=== PATIENT | male | born 1985 | race Caucasian/White ===

== ENCOUNTER → 2016-07-12 | Outpatient (CLI) | payer OTHER ==
[2016-07-12 10:10] LABS: Basophils % (A) 1 %; CH 26.5; CHCM 32.1; Eosinophils % (A) 1 %; HCT 46.6 % (39.0-53.0); HDW 2.62; HGB 14.9 gm/dL (13.0-17.5); Luc % (Auto) 3; Lymphocytes % (A) 32 %; MCH 26.6 pg (25.0-35.0); Monocytes # (A) 0.5 k/uL (0-1.0); Monocytes % (A) 8 %; Neutrophils # (A) 3.6 k/uL (1.3-7.7); Neutrophils % (A) 56 %; RBC 5.61 m/uL (4.30-5.90); WBC 6.4 k/uL (3.8-10.6); WBC (Perox) 6.48
[2016-07-12 10:26] LABS: Appearance,Urine Clear (Clear); Bilirubin,Urine Negative (Negative); Glucose,Urine (UA) Negative (Negative); Ketones,Urine Negative (Negative); Leukocyte Esterase,Urine Negative (Negative); Nitrite,Urine Negative (Negative); PH, Urine 5.5 (5.0-8.0); Protein,Urine Negative (Negative); Specific Gravity,Urine 1.004 (1.001-1.035); UA Billing (MACRO vs. MICRO) CHEM; Urobilinogen,Urine <2.0 mg/dL (<2.0)
[2016-07-12 10:54] LABS: ALT 63 U/L (21-72); AST 37 U/L (17-59); Alkaline Phosphatase 89 U/L (38-126); Anion Gap 13 mmol/L; Blood Urea Nitrogen 23 mg/dL (9-20); Calcium 9.8 mg/dL (8.4-10.2); Carbon Dioxide 26 mmol/L (22-30); Chloride 103 mmol/L (98-107); Cholesterol 152 mg/dL (<200); Glucose 95 mg/dL (74-99); HDL Cholesterol 54 mg/dL (40-60); Non-African American GFR(MDRD) >60 (>60 ml/min/1.73 sqM); Potassium 4.5 mmol/L (3.5-5.1); Sodium 142 mmol/L (137-145); Total Bilirubin 0.4 mg/dL (0.2-1.3); Total Protein 8.2 g/dL (6.3-8.2); Triglycerides 68 mg/dL (<150)
== END | disposition home or self-care (01) ==
LOC: LABWHC1 09:26
PROVIDERS: ATTEND Family Medicine
DX: Z00.00 Encounter for general adult medical examination without abnormal findings (principal); E04.1 Nontoxic single thyroid nodule
CPT/HCPCS: 36415; 80053; 80061; 81003; 84436; 84439; 84443; 85025

== ENCOUNTER 2024-02-28 13:11 | Observation (INO) | payer OTHER ==
--- NOTE | 2024-02-28 13:41 | ED ---
Back Pain HPI - General Source: patient, RN notes reviewed Limitations: no limitations <Katya Cruz - Last Filed: 02/28/24 15:45> <Ramsey Pino - Last Filed: 03/04/24 04:25> - General Chief Complaint: Back Pain/Injury Stated Complaint: lower back pain Time Seen by Provider: 02/28/24 13:30 - History of Present Illness Initial Comments: This is a 38-year-old male presenting to the emergency department chief complaint of worsening lumbar spine over the past 2 days. was advised by search specialist to report to the ER for further evaluation. describes the pain as a stabbing sensation to his lumbar spine. He denies loss of bladder bowel continence or saddle anesthesias or history of new injuries to his back. Denies history of IV drug use. He denies fevers, chills, nausea, vomiting, abdominal pain. Patient states that in [place] was [place] and suffered a work-related injury as a 'tear of the lumbar spine' determined on MRI in November. Patient has been enrolled in physical therapy since November and has received an epidural inje ction with Dr. Vann in January, however symptoms have not improved. Patient had appointment with excel specialist on 02/16 where he is being referred to anesthesiologist with possible nerve block. (Katya Cruz) - Related Data Previous Rx's Medication Instructions Recorded HYDROcodone/APAP 7.5-325MG [[place] 1 tab PO Q6HR PRN #28 tab 03/02/24 7.5-325] Hydrocodone/Acetaminophen 1 tab PO Q6H PRN #28 tab 03/03/24 [Hydrocodone/Acetaminophen 7.5-325] Allergies Allergy/AdvReac Type Severity Reaction Status Date / Time cefprozil [From Cefzil] Allergy Rash/Hives Verified 02/28/24 15:56 Review of Systems ROS Other: All systems not noted in ROS Statement are negative. <Katya Cruz - Last Filed: 02/28/24 15:45> ROS Other: All systems not noted in ROS Statement are negative. <Ramsey Pino - Last Filed: 03/04/24 04:25> ROS Statement: Those systems with pertinent positive or pertinent negative responses have been documented in the HPI. Past Medical History Additional Past Medical History / Comment(s): Back injury History of Any Multi-Drug Resistant Organisms: None Reported Past Surgical History: No Surgical Hx Reported Past Psychological History: No Psychological Hx Reported Smoking Status: Never smoker Past Alcohol Use History: None Reported Past Drug Use History: None Reported <Katya Cruz - Last Filed: 02/28/24 15:45> General Exam Limitations: no limitations General appearance: alert, in distress (from pain) Eye exam: Present: normal appearance, PERRL, EOMI. Absent: scleral icterus, conjunctival injection, periorbital swelling Neck exam: Present: normal inspection. Absent: tenderness, meningismus, lym phadenopathy Respiratory exam: Present: normal lung sounds bilaterally. Absent: respiratory distress, wheezes, rales, rhonchi, stridor Cardiovascular Exam: Present: regular rate, normal rhythm, normal heart sounds. Absent: systolic murmur, diastolic murmur, rubs, gallop, clicks GI/Abdominal exam: Present: soft, normal bowel sounds. Absent: distended, tenderness, guarding, rebound, rigid Rectal exam: Present: normal inspection, normal rectal tone Extremities exam: Present: normal inspection, full ROM, normal capillary refill. Absent: tenderness, pedal edema, joint swelling, calf tenderness Back exam: Present: normal inspection, tenderness (lumbar spine), muscle spasm. Absent: full ROM Neurological exam: Present: alert, oriented X3, CN II-XII intact Skin exam: Present: warm, dry, intact, normal color. Absent: rash <Katya Cruz - Last Filed: 02/28/24 15:45> Course Vital Signs 02/28/24 02/28/24 02/28/24 13:14 15:02 18:31 Temperature 97.9 F 98.0 F Pulse Rate 96 88 Respiratory 18 17 Rate Blood Pressure 144/93 160/89 146/88 O2 Sat by Pulse 98 98 Oximetry Medical Decision Making <Katya Cruz - Last Filed: 02/28/24 15:45> - Lab Data Result diagrams: 02/28/24 16:14 02/28/24 16:14 <Ramsey Pino - Last Filed: 03/04/24 04:25> - Medical Decision Making Was pt. sent in by a medical professional or institution (, PA, CRYPTOLOGIST, urgent care, hospital, or fci...) When possible be specific @ -Patient was advised by excel specialist, Dr. Vann, to present to the emergency department for further evaluation of lumbar back pain. Did you speak to anyone other than the patient for history (EMS, parent, family, police, friend...)? What history was obtained from this source @ -No Did you review nursing and triage notes (agree or disagree)? Why? @ -I reviewed and agree with nursing and triage notes Were old charts reviewed (outside hosp., previous admission, EMS record, old EKG, old radiological studies, urgent care reports/EKG's, fci records)? Report findings @ -No old charts were reviewed Differential Diagnosis (chest pain, altered mental status, abdominal pain women, abdominal pain men, vaginal bleeding, weakness, fever, dyspnea, syncope, headache, dizziness, GI bleed, back pain, seizure, CVA, palpatations, mental health, musculoskeletal)? @ -Differential Back Pain: Strain, zoster, cauda equina syndrome, epidural abscess, vertebral osteomyelitis, discitis, fracture, subluxation, disc herniation, DJD, spinal stenosis, dissection, AAA, pancreatitis, peptic ulcer disease, pyelonephritis, kidney stone, this is not meant to be an all-inclusive list. EKG interpreted by me (3pts min.). @ -none X-rays interpreted by me (1pt min.). @ -None done CT interpreted by me (1pt min.). @ -CT the lumbar spine without contrast remarkable for a L4-L5 central disc protrusion. U/S interpreted by me (1pt. min.). @ -None done What testing was considered but not performed or refused? (CT, X-rays, U/S, labs)? Why? @ -None What meds were considered but not given or refused? Why? @ -None Did you discuss the management of the patient with other professionals (professionals i.e. , PA, CRYPTOLOGIST, lab, RT, psych nurse, psychiatric social worker supervisor, fence erector, teacher, fire management officer, shoe caser)? Give summary @ -No Was smoking cessation discussed for >3mins.? @ -No Was critical care preformed (if so, how long)? @ -No Were there social determinants of health that impacted care today? How? (Homelessness, low income, unemployed, alcoholism, drug addiction, transportation, low edu. Level, literacy, decrease access to med. care, prison, rehab)? @ -No Was there de-escalation of care discussed even if they declined (Discuss DNR or withdrawal of care, Hospice)? DNR status @ -No What co-morbidities impacted this encounter? (DM, HTN, Smoking, COPD, CAD, Cancer, CVA, ARF, Chemo, Hep., AIDS, mental health diagnosis, sleep apnea, morbid obesity)? @ -None Was patient admitted / discharged? Hospital course, mention meds given and route, prescriptions, significant lab abnormalities, going to OR and other pertinent info. @ -admitted. 38-year-old male with lumbar back pain. On evaluation patient noted to be in mild acute distress due to pain. States that he is unable to get in a comfortable position on the examination bed. He is noted to have tenderness palpation of the lumbar spine exacerbated with range of motion. He is noted to have a mild muscle spasm of the lumbar spine as well. Patient's rectal tone is intact. There are no red flag findings concerning for cauda equina syndrome. Patient provided with pain medication. CT remarkable for a central disc protrusion of the L4-L5 lumbar spine. On reevaluation and states that pain has hardly improved after pain medication. Patient is again considerably uncomfortable. At this time patient will be admitted to internal medicine with orthopedics on consult for further evaluation of intractable back pain. Discussed with Dr. Pino Undiagnosed new problem with uncertain prognosis? @ -No Drug Therapy requiring intensive monitoring for toxicity (Heparin, Nitro, Insulin, Cardizem)? @ -No Were any procedures done? @ -No Diagnosis/symptom? @ -lumbar back pain, lumbar disc protrusion Acute, or Chronic, or Acute on Chronic? @ -acute Uncomplicated (without systemic symptoms) or Complicated (systemic symptoms)? @ -uncomplicated Side effects of treatment? @ -No Exacerbation, Progression, or Severe Exacerbation? @ -No Poses a threat to life or bodily function? How? (Chest pain, [place], [place], pneumonia, PE, COPD, DKA, ARF, appy, cholecystitis, CVA, Diverticulitis, Homicidal, Suicidal, threat to staff... and all critical care pts) @ -No (Katya Cruz) Disposition Decision to Admit Reason: Admit from EC Decision Date: 02/28/24 Decision Time: 15:28 <Katya Cruz - Last Filed: 02/28/24 15:45> <Ramsey Pino - Last Filed: 03/04/24 04:25> Clinical Impression: Lumbar back pain Disposition: ADMITTED IP TO THIS HOSP Condition: Good
[2024-02-28] MEDS: HYDROmorphone 0.5 MG/0.5 ML SYRINGE IM STA (13:45)
--- NOTE | 2024-02-28 14:16 | CT ---
EXAMINATION TYPE: CT lumbar spine wo con DATE OF EXAM: 02/28/2024 2:05 PM COMPARISON: None. CLINICAL INDICATION: Male, 38 years old with history of pain;, lower back pain TECHNIQUE: Multiple axial images were obtained from the midportion of T11 through the sacroiliac candace nts. Soft tissue and bone windows in coronal and sagittal planes were obtained and reviewed. Contrast used: mL of , (None, if empty). Oral contrast used: (None, if empty). CT DLP: 539 mGycm, Automated exposure control for dose reduction was used. FINDINGS: Alignment: There are 5 lumbar type vertebral bodies within normal alignment. Bone: Mild multilevel degeneration changes of the spine with Schmorl's nodes and facet joint arthrop athy. Discs: T12-L1: No spinal canal or neural foraminal stenosis is identified. L1-L2: No spinal canal or neural foraminal stenosis is identified. L2-L3: No spinal canal or neural foraminal stenosis is identified. L3-L4: No spinal canal or neural foraminal stenosis is identified. L4-L5: Central disc protrusion with mild to moderate spinal canal stenosis and mild bilateral neural foraminal stenosis. L5-S1: No spinal canal or neural foraminal stenosis is identified. Other: None postsurgical changes of the bowel with sutures identified. Right upper quadrant cholecyst ectomy clips. IMPRESSION: 1. No evidence for spinal fracture. 2. L4-L5 central disc protrusion. Consider further evaluation with MRI as clinically warranted. [facility], , 02/28/2024 2:14 PM
[2024-02-28] MEDS ORDERED: NALOXONE 0.4 MG/ML 1 ML VIAL IV PRN (15:28)
[2024-02-28] MEDS: HYDROmorphone 1 MG/ML 1 ML SYRINGE IM STA (16:09)
[2024-02-28 16:27] LABS: Basophils % (A) 0 %; Eosinophils # (A) 0.1 k/uL (0-0.7); Eosinophils % (A) 1 %; HCT 48.9 % (39.0-53.0); HGB 16.4 gm/dL (13.0-17.5); Lymphocytes # (A) 1.3 k/uL (1.0-4.8); Lymphocytes % (A) 20 %; MCH 29.2 pg (25.0-35.0); MCHC 33.6 g/dL (31.0-37.0); MCV 86.9 fL (80.0-100.0); Mean Platelet Volume 7.5; Monocytes # (A) 0.4 k/uL (0-1.0); Monocytes % (A) 6 %; Neutrophils # (A) 4.6 k/uL (1.3-7.7); Neutrophils % (A) 71 %; Platelet Count 213 k/uL (150-450); RBC 5.63 m/uL (4.30-5.90); RDW 13.2 % (11.5-15.5); WBC 6.5 k/uL (3.8-10.6)
[2024-02-28 16:38] LABS: ALT 49 U/L (4-49); AST 41 U/L (17-59); African American GFR (CKD) >90 (>60 ml/min/1.73 sqM); Albumin 4.7 g/dL (3.5-5.0); Alkaline Phosphatase 72 U/L (38-126); Anion Gap 11 mmol/L; Blood Urea Nitrogen 16 mg/dL (9-20); Calcium 9.5 mg/dL (8.4-10.2); Carbon Dioxide 23 mmol/L (22-30); Chloride 105 mmol/L (98-107); Glucose 92 mg/dL (74-99); Non-African American GFR(CKD) >90 (>60 ml/min/1.73 sqM); Potassium 4.4 mmol/L (3.5-5.1); Sodium 139 mmol/L (137-145); Total Bilirubin 0.6 mg/dL (0.2-1.3); Total Protein 7.9 g/dL (6.3-8.2)
[2024-02-28] MEDS: HYDROmorphone 1 MG/ML 1 ML SYRINGE IVP PRN (20:13)
[2024-02-28] MEDS: KETOROLAC 15 MG/ML 1 ML VIAL IVP PRN (20:15)
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
[2024-02-29] MEDS: ONDANSETRON 4 MG/2 ML VIAL IVP PRN (02:04)
[2024-02-29] MEDS: CYCLOBENZAPRINE 10 MG TAB PO PRN (02:04)
[2024-02-29] MEDS: PROCHLORPERAZINE 5 MG TAB PO PRN (10:56)
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
[2024-02-29] MEDS: methylPREDNISolone SOD SUCCI 125 MG/2 ML VIAL IV SCH (15:11)
[2024-02-29] MEDS: FAMOTIDINE 20 MG/2 ML VIAL IV SCH (15:12)
[2024-02-29] MEDS: PROCHLORPERAZINE INJ 10 MG/2 ML VIAL IVP PRN (21:25)
--- NOTE | 2024-03-01 10:07 | P.PN ---
Progress Note - Text Progress Note Date: 03/01/24 Patient is seen and examined at bedside. He continues to complain of severe pain at his low back particular down toward his right leg when he tries to put weight on his right leg. He is unable to walk well on his own. He is still requiring regular medications. He thinks that the steroid may have helped some minimally. He is voiding freely. He denies any nausea or vomiting. He was able have a bowel movement today. There are no changes bowel bladder function. On exam he is afebrile with stable vital signs His lower extremities have positive straight leg raise bilaterally worse on the right than the left He has 5-5 strength dorsiflexion plantarflexion EHL intact. Thighs Soft nonte nder. No pain with internal ex rotation of his hips. Abdomen soft nontender. His back is nontender over the midline but he has severe paravertebral spasm has significant pain in his back with mobility and motion Assessment and plan Large disc herniation L4-5 with extruded fragment Intractable low back pain Lower extremity colopathy Inability to mobilize independently The patient continues to have severe symptoms due to his disc herniation. He is not having any relief of his symptoms. He initially began this issue due to work injury and continues to have significant problems with it. He is essentially failed conservative treatment. He has been through medical management physical therapy medications and interventional pain management but has continued to have worsening of his symptoms and I think that he is a good candidate for surgical intervention. I think that surgery has potential of helping with a number of his symptoms and could help better improve his mobility. I would plan for surgical intervention in the form of laminectomy decompression with discectomy at L4-5. We discussed the risk complications alternatives and benefits at length. I discussed the issues with surgery and the risks associated with this. He is interested in proceeding with surgery as soon as possible and we will plan for him for the operating room for surgery tomorrow. Will make him n.p.o. after midnight tonight. I answered all of his questions best my ability language she can understand his growth plan and he will sign informed consent.
[2024-03-02] MEDS: ONDANSETRON 4 MG/2 ML VIAL IVP ONE (08:44)
[2024-03-02] MEDS: LACTATED RINGERS 1,000 ML IV SCH (08:44)
[2024-03-02] MEDS: DEXAMETHASONE SOD PHOSPHATE 4 MG/ML 1 ML VIAL IV ONE (08:44)
[2024-03-02] MEDS: IV FLUID CONTINUATION 1,000 ML IV ONE (13:07)
[2024-03-02] MEDS: fentaNYL (PF) 50 MCG/ML 2 ML AMP IVP STA (13:25)
[2024-03-02] MEDS: MIDAZOLAM 2 MG/2 ML VIAL IV ONE (13:25)
[2024-03-02] MEDS ORDERED: PROPOFOL 10 MG/ML 20 ML VIAL IV ONE (14:40)
[2024-03-02] MEDS ORDERED: MIDAZOLAM 2 MG/2 ML VIAL ONE (14:40)
[2024-03-02] MEDS ORDERED: LIDOCAINE 1% INJ 10MG/ML (20 ML MDV) ONE (14:40)
[2024-03-02] MEDS ORDERED: fentaNYL (PF) 50 MCG/ML 2 ML AMP ONE (14:40)
[2024-03-02] MEDS ORDERED: SUCCINYLCHOLINE CHLORIDE 200 MG/10 ML VIAL IV ONE (14:40)
[2024-03-02] MEDS: SODIUM CHLORIDE 0.9% 100 ML with ceFAZolin 2,000 MG IV ONE (14:45)
[2024-03-02] MEDS: ceFAZolin 1,000 MG in SODIUM CHLORIDE 0.9% 1,000 ML IRRIGATION ONE (15:07)
[2024-03-02] MEDS: THROMBIN (BOVINE) 5,000 UNIT VIAL TOPICAL ONE (15:07)
[2024-03-02] MEDS: LIDOCAINE 1%-EPI 1:100,000 20 ML VIAL SQ ONE (15:07)
[2024-03-02] MEDS: methylPREDNISolone ACETATE 40 MG/ML 1 ML VIAL INJ ONE (15:36)
[2024-03-02] MEDS ORDERED: ACETAMINOPHEN TAB 325 MG TAB PO PRN (15:58)
[2024-03-02] MEDS ORDERED: HYDROmorphone 0.5 MG/0.5 ML SYRINGE IVP PRN (15:58)
[2024-03-02] MEDS ORDERED: BENZOCAINE/MENTHOL LOZENG 1 EACH LOZENGE MUCOUS MEM PRN (15:58)
[2024-03-02] MEDS ORDERED: HYDROcodone/APAP 5-325MG 1 EACH TAB PO PRN (15:58)
[2024-03-02] MEDS ORDERED: PROMETHAZINE 25 MG TAB PO PRN (16:01)
--- NOTE | 2024-03-02 16:05 | P.OP ---
Date of Procedure: 03/02/24 Preoperative Diagnosis: Herniated nucleus pulposus L4-5 with extruded fragment, low back pain, lower extreme radiculopathy Postoperative Diagnosis: Same Anesthesia: GETA Pathology: none sent Condition: stable Disposition: PACU Description of Procedure: BRIEF OPERATIVE NOTE Preoperative Diagnosis:Herniated nucleus pulposus L4-5 with extruded fragment, low back pain, lower extreme radiculopathy Postoperative Diagnosis:Herniated nucleus pulposus L4-5 with extruded fragment, low back pain, lower extreme radiculopathy Procedure: Laminectomy and decompression L4-5 Discectomy for decompression L4-5 Use of C-arm fluoroscopy guidance Surgeon: Dr. Vann Boiler Fitter: school psychologist assistant, who is present throughout the entire the case persistence during positioning, dissection, exposure, visualization, and all crucial elements of the case as well as closure. Anesthesia: General anesthesia per Dr. Gilman Estimated blood loss: Less than 50 cc Complications: None apparent Components implanted: None Disposition: To recovery room in good stable condition. OPERATIVE INDICATIONS The patient has been having issues in their lower back and lower extremities since sustaining an injury at work. The patient has been through conservative treatment. He had been working through conservative treatment however he had severe exacerbation of his symptoms and was found to have large extruded fragment at L4-5 which correlated well with his low back lower extremity symptoms. He was essentially incapacitated with this and was almost bedbound due to his pain and symptoms. He had been admitted to the hospital due to this and was not having any benefit despite aggressive conservative care. We discussed various treatment options including surgery, and the patient wishes to proceed with surgery We discussed the risk, patient's alternatives and benefits of surgery including but not limited to, risk of bleeding risk of infection, risk of need for further surgery, risk of decreased, loss of motion, loss of function, nerve damage, paralysis, heart attack, blindness and . OPERATIVE SUMMARY After discussing all the risks, patient alternatives and benefits at length, the patient elected to proceed with surgical intervention, signed informed consent, and presented for their procedure. The patient was seen and examined in the preoperative holding area and the surgical site was marked. The patient was given antibiotics and brought to the operating room. The patient was sedated and intubated by anesthesia in standard fashion. The patient was positioned on to the operating room table in a prone position on the appropriate frame which was well-padded and well molded. We were careful to pad any bony prominences and pressure points. We were careful to maintain the patient's cervical spine and good neutral alignment and position throughout. The patient was prepped and draped in a normal standard fashion. An appropriate timeout and keystone protocol performed. We were able to proceed with the surgery. Fluoroscopy was utilized to establish the appropriate level at L4-5. The local wound area was infiltrated with local anesthetic. An incision was made at the midline longitudinally over the appropriate levels. Dissection was taken down subcutaneously to the level of the fascia which was split midline at L4-5. Dissection was taken over the lamina. Intraoperative fluoroscopy was taken which showed a marker at the appropriate level. With the appropriate level positively confirmed, we were able to proceed with la minectomy. The wound was copiously irrigated and suctioned dry as had been done periodically throughout the case. I performed a laminectomy with a combination of curettes and a high-speed bur and Kerrison rongeurs. A small medial facetectomy was performed again further access on the right. A partial foraminotomy was also performed. Portions of the ligamentum flavum were taken down to expose the dura and traversing nerve root. I was able to mobilize the traversing nerve root and gain access to the disc space. Note was made of obvious compression from the disc and significant tension on the nerve root. Protecting the soft tissue structures, a small annulotomy was established. I was able to perform discectomy and remove any extruded disc fragments and any loose fragments from within the disc itself. There was a very large extruded disc fragment which came out very nicely during the procedure giving excellent decompression from the discectomy. There is some disc desiccation noted. I tried to preserve the disc annulus that appeared stable. There were no further extruded fragments noted. There is no evidence of dural tear or leak. Good hemostasis maintained. The wound was copiously irrigated and suctioned dry. Good decompression and discectomy was noted. We were able to proceed with closure. The fascia was closed for a watertight closure. The subcuticular tissue was closed with absorbable suture. The wound was cleaned and dried and dressed with the appropriate dressing. The drapes were broken down. The patient was gently rolled back onto their hospital bed be ing careful to maintain their cervical spine and good neutral alignment and position. They were woken up by anesthesia, extubated, and brought to the recovery room in good stable condition. The patient will be admitted to the hospital for observation and for appropriate postoperative care, medical management and monitoring. We will continue to follow them closely about the postoperative course.
--- NOTE | 2024-03-02 16:14 | FL ---
EXAMINATION TYPE: FL guidance operating room, XR lumbar spine 1V DATE OF EXAM: 03/02/2024 4:02 PM COMPARISON: Pre Operative Images if available both CT/MRI or plain film CLINICAL INDICATION: Male, 38 years old with history of LUMBAR LAMINECTOMY; TECHNIQUE: FL guidance operating room, XR lumbar spine 1V, multiple fluoroscopic images provided for procedure. Total fluoroscopy time: 1.0 seconds Total submitted images to PACS: 2 DAP: [id number] Gycm2 uGym2 cGycm2 or equivalent. FINDINGS: Fluoroscopic images during internal fixation/arthroplasty.No immediate complication identified. Multi level degeneration changes of the spine. IMPRESSION: 1. No evidence for intraoperative complication. 2. Please see the operative/procedural note for further details. [facility], , 03/02/2024 4:12 PM
[2024-03-02] MEDS: HYDROmorphone 0.5 MG/0.5 ML SYRINGE IVP PRN (16:25)
[2024-03-02] MEDS: KETOROLAC 15 MG/ML 1 ML VIAL IVP PRN (16:25)
[2024-03-02] MEDS: SODIUM CHLORIDE 0.9% 1,000 ML IV SCH (16:46)
[2024-03-02] MEDS: HYDROmorphone 1 MG/ML 1 ML SYRINGE IVP PRN (17:07)
[2024-03-02] MEDS: HYDROcodone/APAP 7.5-325MG 1 EACH TAB PO PRN (20:18)
[2024-03-02] MEDS ORDERED: PROCHLORPERAZINE 5 MG TAB PO PRN (20:40)
[2024-03-03] MEDS: PROCHLORPERAZINE 5 MG TAB PO STA (01:37)
[2024-03-03 08:54] VITALS: BP 144/78; PULSE 81; RESP 17; TEMP 98.3
[2024-03-03] MEDS: SENNOSIDES-DOCUSATE SODIUM 1 EACH TAB PO SCH (08:58)
--- NOTE | 2024-03-03 10:15 | P.DS ---
Providers Date of admission: 02/28/24 15:09 Attending physician: Marianne Burnette Consults: 02/28/24 15:28 Consult Physician Routine Consulting Provider: Walker Galarza Consult Reason/Comments: lumbar disc protrusion, pain Do you want consulting provider notified?: Yes, Notify in am Primary care physician: [facility][1] Course: The patient presented on the day of admission in regards to his severe low back pain and lower extreme radiculopathy and inability to mobilize and ambulate. He was unable to take care of himself and was requiring IV medication for his symptoms and pain. He had evaluation and was found to have exacerbation of his issues with disc herniation at L4-5. His imaging showed extrusion of disc fragment at the site of his injured disc which correlated well with his back and lower extremity issues. We discussed various treatment options and he had been failing conservative management. We after discussing surgery he elected proceed with surgical intervention. Surgery was performed yesterday and today he is feeling significant better. He is mobilizing much better now. His pain is much better controlled and his lower extremities are doing well when he ambulates without any evidence of neurologic decline or loss. He is voiding freely. Pain is controlled with oral medication. He is ambulatory in the halls. Physical Exam The incision site is clean dry and intact. There is no erythema no drainage. There is no purulence no evidence of infection. Abdomen soft and nontender. Chest has good excursion with deep inspiration and expiration. The patient has active and passive range of motion intact at the upper and lower extremities. There is no acute change in neurologic status. He has 5 out of 5 strength his bilateral lower extremities with dorsiflexion plantarflexion EHL. He is getting in and out of bed slowly but doing well with this. Hospital Course Postoperative day #1 status post laminectomy decompression at the discectomy at L4-5 for his disc herniation the patient has been making good progress postoperatively. They have completed the prophylactic antibiotics without any signs or symptoms of infection. The patient has been able to advance their diet, and is tolerating diet adequately. The pain was initially controlled with IV medications and is now controlled appropriately with oral medications. The patient has been able to increase their mobilization. The patient has progressed appropriately. I think they are in good stable condition for discharge today. They will be sent home with appropriate prescriptions. I sent pain medication to [facility] [place]. I answered their questions to the best of my ability in a language that they can understand and they are agreeable with the plan. They will follow up as directed in approximate 2 weeks or sooner if he is having problems. Patient Condition at Discharge: Good Plan - Discharge Summary New Discharge Prescriptions: New HYDROcodone/APAP 7.5-325MG [[place] 7.5-325] 1 tab PO Q6HR PRN #28 tab PRN Reason: Pain Hydrocodone/Acetaminophen [Hydrocodone/Acetaminophen 7.5-325] 1 tab PO Q6H PRN #28 tab PRN Reason: Pain No Action HYDROcodone/APAP 7.5-325MG [[place] 7.5-325] 1 tab PO Q6H PRN PRN Reason: Pain Discharge Medication List HYDROcodone/APAP 7.5-325MG [[place] 7.5-325] 1 tab PO Q6H PRN 02/28/24 [History] HYDROcodone/APAP 7.5-325MG [[place] 7.5-325] 1 tab PO Q6HR PRN #28 tab 03/02/24 [Rx] Hydrocodone/Acetaminophen [Hydrocodone/Acetaminophen 7.5-325] 1 tab PO Q6H PRN #28 tab 03/03/24 [Rx] Follow up Appointment(s)/Referral(s): Greg Salinas DO [Primary Care Provider] - 1-2 days Dennys Vann DO [Doctor of Osteopathic Medicine] - 2 Weeks Activity/Diet/Wound Care/Special Instructions: Keep site clean. May shower with waterproof Tegaderm intact. Do not soak in a tub. After 72 hours postoperatively, patient May remove dressing and then may shower with area uncovered. Leave glue intact and allow it to fray off on its own. May ambulate as tolerated. Avoid heavy or rigorous activity. No repetitive bending twisting or lifting. No overhead work. Discharge Disposition: HOME SELF-CARE
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
== END 2024-03-03 12:41 | disposition home or self-care (01) ==
LOC: EC 13:11 → 6NMEDSUR 15:09 → 4SSUR 03-01 08:58
PROVIDERS: ADMIT Internal Medicine; ATTEND Internal Medicine
DX: M51.16 Intervertebral disc disorders with radiculopathy, lumbar region (principal); Z88.1 Allergy status to other antibiotic agents; Z87.19 Personal history of other diseases of the digestive system; Z87.828 Personal history of other (healed) physical injury and trauma; Z98.890 Other specified postprocedural states; X58.XXXA Exposure to other specified factors, initial encounter; Y99.0 Civilian activity done for income or pay
CPT/HCPCS: 63047; 96376 ×4; 96374; 96375 ×2; 96372; 99284; 97161; 80053; 85025; 72020; 72131; G0378 ×6; S0183; J2250; J0330; J0780 ×4; J2405; J0690; J2003; J3010; J3490 ×4; J1171 ×7; J1885 ×5; J2704; J1010; J2919 ×4